=== PATIENT | female | born 2000 | race Caucasian/White ===

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

== ENCOUNTER 2021-01-10 16:02 | Emergency (ER) | payer BC ==
--- OUTSIDE RECORDS SUMMARY | 2021-01-10 16:05 | XMS REPORT | Continuity of Care Document ---
:2000 Author Organization [facility] t Address [address] [place] [address] Care Team Providers Name Role Phone Doctor Unassigned, Name Attending Clinician Unavailable Problems This patient has no known problems. Allergies, Adverse Reactions, Alerts This patient has no known allergies or adverse reactions. Medications This patient has no known medications. Procedures This patient has no known procedures. Encounters Start End Encounter Admission Attending Care Care Encounter Source Date/Time Date/Time Type Type Clinicians Facility Department ID 2020-10-07 2020-10-07 Orders Doctor CLARENCE [id number] 00:00:00 00:00:00 Only Unassigned, EDGARDO [id number] [place] [facility] [id number] Results This patient has no known results.
[2021-01-10 16:45] LABS: Urine Blood 1+ (Negative); Urine Glucose Negative (Negative); Urine Protein 1+ (Negative); Urine Specific Gravity 1.025 (1.005-1.030); Urine pH 5.5 (5.0-7.0)
[2021-01-10] MEDS ORDERED: NA CHLORIDE 0.9% 1,000 ML ONE (16:56)
[2021-01-10] MEDS ORDERED: KETOROLAC 30 MG/ML INJ ONE (16:57)
[2021-01-10] MEDS ORDERED: ONDANSETRON 4 MG/2 ML VIAL ONE (16:57)
[2021-01-10 17:06] LABS: Absolute Lymphocytes (CBC) 1.5 K/uL (0.7-4.9); Basophils % 0.7 % (0-1.3); Hematocrit 39.5 % (36.0-45.0); Lymphocytes % 16.6 % (15.3-44.8); MPV 9.1 fL (7.6-11.3); RBC Red Blood Cell Count 4.96 M/uL (3.86-4.86)
[2021-01-10 17:34] LABS: Albumin 3.6 g/dL (3.4-5.0); Bilirubin Direct 0.1 mg/dL (0-0.2); Bilirubin Total 0.4 mg/dL (0.2-1.0); Potassium 4.2 mmol/L (3.5-5.1); Protein, Total 7.7 g/dL (6.4-8.2)
--- NOTE | 2021-01-10 18:01 | RAD REPORT ---
EXAM DESCRIPTION: CT - Abdomen Pelvis W Contrast - 01/10/2021 5:30 pm CLINICAL HISTORY: Abdominal pain COMPARISON: none. TECHNIQUE: Computed axial tomography of the abdomen pelvis was obtained. 100 cc Isovue-300 was admin istered intravenously. Oral contrast was not requested which limits evaluation of bowel. All CT scans are performed using dose optimization technique as appropriate and may include automated exposure control or mA/KV adjustment according to patient size. FINDINGS: The liver, spleen, pancreas, adrenal and kidneys appear unremarkable. There is no evidence of diverticulitis. Normal appendix No adnexal mass IMPRESSION: No acute abnormality is displayed.
--- NOTE | 2021-01-10 18:03 | RAD REPORT ---
EXAM DESCRIPTION: US - Abdomen Exam Limited - 01/10/2021 5:47 pm CLINICAL HISTORY: Abdominal pain. COMPARISON: None. FINDINGS: The gallbladder wall is not thickened. A gallstone is not seen. The biliary tree is normal caliber. IMPRESSION: Unremarkable gallbladder ultrasound.
--- NOTE | 2021-01-10 18:23 | EDPHYS ---
Physician Documentation [facility] Name: Rocky Taylor Age: 20 yrs Sex: Female : 2000 Arrival Date: 01/10/2021 Time: 16:03 Bed 6 Private MD: Wilson Peterson W ED Physician Asher Brooks HPI: 01/10 17:44 This 20 yrs old Female presents to ER via Ambulatory with complaints of kb Abdominal Pain. 17:44 The patient presents with abdominal pain in the right upper quadrant, right lower kb quadrant. Onset: The symptoms/episode began/occurred 3 day(s) ago. The symptoms do not radiate. Associated signs and symptoms: Pertinent positives: nausea, vomiting, and diarrhea, fever. The symptoms are described as constant. Modifying factors: The symptoms are alleviated by nothing, the symptoms are aggravated by nothing. Severity of pain: At its worst the pain was moderate in the emergency department the pain is unchanged. The patient has not experienced similar symptoms in the past. The patient has not recently seen a physician. Historical: - Allergies: 16:16 No Known Allergies; hb - PMHx: 16:16 Depression; Anemia; Hypothyroidism; Thyroid CA; hb - PSHx: 16:16 Thyroidectomy; hb - Immunization history:: Adult Immunizations up to date. - Social history:: Smoking status: Patient denies any tobacco usage or history of. ROS: 17:43 Cardiovascular: Negative for chest pain, palpitations, and edema, Respiratory: Negative kb for shortness of breath, cough, wheezing, and pleuritic chest pain, MS/Extremity: Negative for injury and deformity, Skin: Negative for injury, rash, and discoloration, Neuro: Negative for headache, weakness, numbness, tingling, and seizure. 17:43 Constitutional: Positive for fever. 17:43 Abdomen/GI: Positive for abdominal pain, nausea, vomiting, and diarrhea. Exam: 17:43 Constitutional: This is a well developed, well nourished patient who is awake, alert, kb and in no acute distress. Head/Face: Normocephalic, atraumatic. Cardiovascular: Regular rate and rhythm with a normal S1 and S2. No gallops, murmurs, or rubs. No pulse deficits. Respiratory: Respirations even and unlabored. No increased work of breathing, no retractions or nasal flaring. Skin: Warm, dry with normal turgor. Normal color. MS/ Extremity: Pulses equal, no cyanosis. Neurovascular intact. Full, normal range of motion. Neuro: Awake and alert, GCS 15, oriented to person, place, time, and situation. Moves all extremities. Normal gait. 17:43 Abdomen/GI: Inspection: abdomen appears normal, Bowel sounds: normal, in all quadrants, Palpation: soft, in all quadrants, moderate abdominal tenderness, in the right upper quadrant and right lower quadrant. Vital Signs: 16:14 BP 137 / 79; Pulse 122; Resp 16; Temp 98.4; Pulse Ox 99% on R/A; Pain 4/10; hb 18:01 BP 120 / 50; Pulse 112; Resp 17; Pulse Ox 99% on R/A; tw2 MDM: 16:22 Patient medically screened. 17:43 Data reviewed: vital signs, nurses notes. Data interpreted: Pulse oximetry: on room air kb is 99 %. Interpretation: normal. 18:23 Counseling: I had a detailed discussion with the patient and/or guardian regarding: the kb historical points, exam findings, and any diagnostic results supporting the discharge/admit diagnosis, lab results, radiology results, the need for outpatient follow up, a family practitioner, to return to the emergency department if symptoms worsen or persist or if there are any questions or concerns that arise at home. 01/10 16:22 Order name: Basic Metabolic Panel 01/10 16:22 Order name: CBC with Diff 01/10 16:22 Order name: Hepatic Function 01/10 16:22 Order name: Lipase 01/10 16:45 Order name: Urine Dipstick-Ancillary; Complete Time: 16:58 EDCT 01/10 17:23 Order name: Urine --Ancillary (enter results) eb 01/10 16:22 Order name: IV Saline Lock; Complete Time: 16:55 kb 01/10 16:39 Order name: US Abdomen Limited kb 01/10 16:39 Order name: CT Abd/Pelvis - IV Contrast Only 01/10 18:02 Order name: CT EDCT 01/10 18:05 Order name: US [facility] 01/10 16:22 Order name: Labs collected and sent; Complete Time: 16:55 kb 01/10 16:22 Order name: Urine Test (obtain specimen); Complete Time: 16:56 kb 01/10 16:22 Order name: Urine Dipstick-Ancillary (obtain specimen); Complete Time: 16:56 kb Administered Medications: 16:48 Drug: Zofran (Ondansetron) 4 mg Route: IVP; Site: left antecubital; tw2 17:14 Follow up: Response: No adverse reaction bp 16:50 Drug: NS 0.9% 1000 ml Route: IV; Rate: 1000 ml; Site: left antecubital; tw2 18:57 Follow up: Response: No adverse reaction; IV Status: Completed infusion; IV Intake: tw2 1000ml 16:50 Drug: TORadol - (ketorolac) 15 mg Route: IVP; Site: left antecubital; tw2 17:14 Follow up: Response: No adverse reaction bp Disposition: 01/11 08:01 Co-signature as Attending Physician, Asher Brooks MD I agree with the assessment and anthony plan of care. Disposition: 01/10/21 18:22 Discharged to Home. Impression: Generalized abdominal pain, Diarrhea, unspecified. - Condition is Stable. - Discharge Instructions: Abdominal Pain, Adult, [id number], Diarrhea, Adult, [id number]-ot-Nihk. - Prescriptions for Bentyl 20 mg Oral Tablet - take 1 tablet by ORAL route every 6 hours As needed; 20 tablet. Zofran 4 mg Oral Tablet - take 1 tablet by ORAL route every 6 hours As needed; 20 tablet. - Medication Reconciliation Form, Thank You Letter, Antibiotic Education, Prescription Opioid Use, Work release form form. - Follow up: Emergency Department; When: As needed; Reason: Worsening of condition. Follow up: Private Physician; When: 2 - 3 days; Reason: Recheck today's complaints, Continuance of care, Re-evaluation by your physician. Signatures: Dispatcher [employer] Marisabel Lu, SAW EDGE FUSER CIRCULAR-C SAW EDGE FUSER CIRCULAR-Asher Peters MD MD cha Baxter, Heather, RN RN Juanita España RN RN tw2 Raza Barbour RN RN bp Corrections: (The following items were deleted from the chart) 01/10 18:57 18:22 01/10/2021 18:22 Discharged to Home. Impression: Generalized abdominal pain; tw2 Diarrhea, unspecified. Condition is Stable. Forms are Medication Reconciliation Form, Thank You Letter, Antibiotic Education, Prescription Opioid Use. Follow up: Emergency Department; When: As needed; Reason: Worsening of condition. Follow up: Private Physician; When: 2 - 3 days; Reason: Recheck today's complaints, Continuance of care, Re-evaluation by your physician. kb
--- NOTE | 2021-01-10 18:23 | ER ---
Nurse's Notes [facility] Name: Rocky Taylor Age: 20 yrs Sex: Female : 2000 Arrival Date: 01/10/2021 Time: 16:03 Bed 6 Private MD: Wislon Peterson W Diagnosis: Generalized abdominal pain;Diarrhea, unspecified Presentation: 01/10 16:14 Chief complaint: Sent by Dr. Peterson for RLQ pain and N/V/D x 3 days. Not hb tolerating fluids. Coronavirus screen: At this time, the client does not indicate any symptoms associated with coronavirus-19. Ebola Screen: No symptoms or risks identified at this time. Initial Sepsis Screen: Does the patient meet any 2 criteria? HR > 90 bpm. No. Patient's initial sepsis screen is negative. Does the patient have a suspected source of infection? No. Patient's initial sepsis screen is negative. Risk Assessment: Do you want to hurt yourself or someone else? Patient reports no desire to harm self or others. Onset of symptoms was January 08, 2021. 16:14 Method Of Arrival: Ambulatory hb 16:14 Acuity: HERVE 3 hb Triage Assessment: 16:15 General: Appears distressed, uncomfortable, Behavior is cooperative, appropriate for bp age, anxious. Pain: Complains of pain in abdomen. EENT: No deficits noted. Neuro: No deficits noted. Cardiovascular: No deficits noted. Respiratory: No deficits noted. GI: Reports lower abdominal pain, upper abdominal pain. : No signs and/or symptoms were reported regarding the genitourinary system. Derm: No deficits noted. Musculoskeletal: No deficits noted. Historical: - Allergies: 16:16 No Known Allergies; hb - PMHx: 16:16 Depression; Anemia; Hypothyroidism; Thyroid CA; hb - PSHx: 16:16 Thyroidectomy; hb - Immunization history:: Adult Immunizations up to date. - Social history:: Smoking status: Patient denies any tobacco usage or history of. Screenin:15 Abuse screen: Denies threats or abuse. Denies injuries from another. Nutritional bp screening: No deficits noted. Tuberculosis screening: No symptoms or risk factors identified. Fall Risk None identified. Assessment: 16:15 General: SEE TRIAGE NOTE. bp 17:38 Reassessment: No changes from previously documented assessment. Patient and/or family bp updated on plan of care and expected duration. Pain level reassessed. PT RETURNED FROM CT. 18:57 Reassessment: Patient appears in no apparent distress at this time. No changes from tw2 previously documented assessment. Patient and/or family updated on plan of care and expected duration. Pain level reassessed. Patient is alert, oriented x 3, equal unlabored respirations, skin warm/dry/pink. Patient states feeling better. Patient states symptoms have improved. Vital Signs: 16:14 BP 137 / 79; Pulse 122; Resp 16; Temp 98.4; Pulse Ox 99% on R/A; Pain 4/10; hb 18:01 BP 120 / 50; Pulse 112; Resp 17; Pulse Ox 99% on R/A; tw2 ED Course: 16:03 Patient arrived in ED. as 16:03 Wilson Peterson MD is Private Physician. as 16:07 Marisabel Cuba FNP-C [facility] kb 16:07 Asher Brooks MD is Attending Physician. kb 16:15 Patient has correct armband on for positive identification. Bed in low position. Call bp light in reach. Side rails up X2. Adult w/ patient. 16:16 Triage completed. hb 16:16 Arm band placed on. hb 16:22 Raza Barbour, RN is Primary Nurse. bp 16:41 Radiology exam delayed due to test not completed at this time. vm2 16:50 Inserted saline lock: 20 gauge in left antecubital area, using aseptic technique. bp 18:56 No provider procedures requiring assistance completed. IV discontinued, intact, tw2 bleeding controlled, No redness/swelling at site. Pressure dressing applied. 22:08 CT In Process Unspecified. EDMS 22:09 US In Process Unspecified. EDMS Administered Medications: 16:48 Drug: Zofran (Ondansetron) 4 mg Route: IVP; Site: left antecubital; tw2 17:14 Follow up: Response: No adverse reaction bp 16:50 Drug: NS 0.9% 1000 ml Route: IV; Rate: 1000 ml; Site: left antecubital; tw2 18:57 Follow up: Response: No adverse reaction; IV Status: Completed infusion; IV Intake: tw2 1000ml 16:50 Drug: TORadol - (ketorolac) 15 mg Route: IVP; Site: left antecubital; tw2 17:14 Follow up: Response: No adverse reaction bp Intake: 18:57 IV: 1000ml; Total: 1000ml. tw2 Outcome: 18:22 Discharge ordered by MD. hansen 18:56 Discharged to home ambulatory, with family. tw2 18:56 Condition: stable 18:56 Discharge instructions given to patient, family, Instructed on discharge instructions, follow up and referral plans. medication usage, Demonstrated understanding of instructions, follow-up care, medications, Prescriptions given X 2. 18:57 Patient left the ED. tw2 Signatures: Dispatcher [employer] EDMS Marisabel Cuba, PHOTOGRAPHY COLORIST-C PHOTOGRAPHY COLORIST-Tania Nguyen Heather, RN RN Juanita España RN RN 2 Mishel Spivey [facility] Raza Barbour, RN RN bp
[2021-01-10 19:04] VITALS: TEMP 98.4; O2SAT 99
[2021-01-10 19:05] VITALS: BP 120/50
[2021-01-10 19:07] LABS: Platelet Estimate ADEQ; White Blood Cell Scan OK (OK)
[2021-01-10 19:08] LABS: Anisocytosis 3+; Blood Morphology Comment NOTED (NOT SEEN)
[2021-01-10 19:25] LABS: Urine Specific Gravity/Preg 1.025 (1.005-1.030)
== END 2021-01-10 18:57 | disposition home or self-care (01) ==
LOC: ER 16:02
DX: R10.84 Generalized abdominal pain (principal); R19.7 Diarrhea, unspecified; F32.9 Major depressive disorder, single episode, unspecified; E03.9 Hypothyroidism, unspecified; Z85.850 Personal history of malignant neoplasm of thyroid
CPT/HCPCS: 96361; 85025; 80048; 36415; 81025; 80076; 81003; 83690; 74177; 76705; 96375; 96374; 99284; Q9967; J7030; J2405

== ENCOUNTER 2023-07-27 23:28 | Emergency (ER) | payer BC ==
--- OUTSIDE RECORDS SUMMARY | 2023-07-27 23:32 | XMS REPORT | Continuity of Care Document ---
:2000 Author Organization [facility] t Address [address] [place] [address] Care Team Providers Name Role Phone JUANITA SUAREZ Primary Care Physician Unavailable [email or web address] Attending Clinician Unavailable Lilly HE, Sebastian Tucker Attending Clinician CHAVEZ ALTAMIRANO Attending Clinician Unavailable ESAU MABRY Attending Clinician Unavailable ROLAND CANNON Attending Clinician Unavailable Doctor Unassigned, [place] Attending Clinician Unavailable [email or web address] Admitting Clinician Unavailable ESAU MABRY Admitting Clinician Unavailable Payers Payer Name Policy Type Policy Number Effective Date Expiration Date S [facility] - [id number] 2013 00:00:00 OUT OF STATE Problems Condition Condition Condition Status Onset Resolution Last Treating Co mments Source Name Details Category Date Date Treatment Clinician Date Obesity Obesity Disease Active Univers (BMI (BMI 5-05 ity of 30-39.9) 30-39.9) 00:00: [address] Gastroente Gastroente Disease Active U nivers ritis ritis 5-04 ity of 00:00: [address] Abnormal Abnormal Disease Active Unive rs uterine uterine 3-12 ity of bleeding bleeding 00:00: [place] (AUB) (AUB) 00 Medical Branch OCP (oral OCP (oral Disease Active Uni vers contracept contracept 3-12 it y of kel pills) kel pills[place] initiation 00 Me dical Branch Anemia, Anemia, Disease Active Univers unspecifie unspecifie 3-12 it y of d d 00:00: [place] [facility] Generalize Generalize Disease Active U nivers d anxiety d anxiety 3-12 ity of disorder disorder 00:00: [place] [facility] S/P total S/P total Disease Active Uni vers thyroidect thyroidect 1-10 it y of carlos carlos 00:00: [place] [facility] Status Status Disease Active Univers post post 02-12 ity of radioactiv radioactiv 00:[place] e iodine e iodine 00 Medica l thyroid thyroid Branch ablation ablation Thyroid Thyroid Disease Active Univers cancer cancer 02-11 ity of 00:00: [place] [facility] 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 ICD10 Diagnosis Term Combination Technician Utility Allergies, Adverse Reactions, Alerts Allergy Allergy Status Severity Reaction(s) Onset Inactive Treating Comm ents Source Name Type Date Date Clinician NO KNOWN Drug Active Univers ALLERGIE Class ity of S [facility] Social History Social Habit Start Date Stop Date Quantity Comments Source Alcohol intake 2021-02-24 2021-02-24 Ex-drinker University of 00:00:00 00:00:00 (finding) [facility] Tobacco use and 2020-10-07 2020-10-07 Never used Universit y of exposure 00:00:00 00:00:00 [facility] Sex Assigned At [birth year] Universit y of 00:00:00 00:00:00 [facility] Smoking Status Start Date Stop Date Source Unknown if ever smoked [facility] Never smoker University [place] [facility] Medications Ordered Filled Start Stop Current Ordering Indication Dosage Frequency Signature Comments Components Source Medication Medication Date Date Medication? Clinician (SIG) Name Name mary Yes Take by Uni vers min, 5-05 mouth. ity of vitamin 13:33: [place] B-12, 32 Medical (VITAMIN Branch B-12 ORAL) ciprofloxac Yes [id number] 500mg Take 1 Univers in HCl 500 5-05 tablet by ity of mg tablet 00:00: mouth [place] 00 every 12 Medical (twelve) Branch hours. norgestimat Yes [id number] 1{tbl} Take 1 Univers e-ethinyl 3-11 tablet by ity o f estradioL 00:00: mouth [place] (FEMYNOR) 00 daily. Medical 0.25-35 Branch mg-mcg per tablet levothyroxi Yes Univer s ne 200 mcg 1-21 ity of tablet 00:00: [place] 00 Medical Branch ergocalcife Yes [id number] Take Univ ers rol, 1-21 50,000 ity of vitamin d2, 00:00: Units by [place] 1,250 mcg 00 mouth Medical (50,000 weekly. Branch unit) capsule liothyronin 2019-09 Yes 25ug Take 25 Uni vers e 25 mcg 1-04 mcg by ity of tablet 00:00: mouth [place] 00 every Medical morning. Branch ALPRAZolam 2019-09 Yes TAKE 1 Unive rs 0.25 mg 1-04 TABLET BY ity of tablet 00:00: MOUTH [place] 00 EVERY DAY Medical NEEDED Branch lamoTRIgine 2019-09 Yes TAKE 1.5 Un thee 100 mg 1-04 TABLETS BY ity of tablet 00:00: MOUTH ONCE [place] 00 A DAY Medical Branch venlafaxine 2019-09 Yes 150mg Take 150 U nivers XR 150 mg 1-04 mg by ity of 24 hr 00:00: mouth [place] capsule 00 daily. Medical Branch Vital Signs Vital Name Observation Time Observation Value Comments Source Body height 2021-02-24 19:54:00 152.4 cm [facility] Body weight 2021-02-24 19:54:00 84.823 kg [facility] BMI 2021-02-24 19:54:00 36.52 kg/m2 [facility] Body mass index 2021-02-24 19:54:00 97.74 % [facility] [Percentile] Per age and sex Procedures Procedure Date / Time Performed Performing Clinician Sour e ASSIGNMENT OF BENEFITS 2020-10-07 19:39:36 Doctor Unassigned, No [facility] Name [facility] Branch Encounters Start End Encounter Admission Attending Care Care Encounter Source Date/Time Date/Time Type Type Clinicians Facility Department ID 2021-07-13 Emergency [facility] [id number] Univers 17:00:29 [facility] 2023-07-11 2023-07-11 Outpatient [email or web address] PRIV PRIV [id number] [facility] 00:00:00 00:00:00 diyala_S [id number] Medic al 2021-02-24 2021-02-24 [facility] [id number] Univers 15:00:00 15:15:00 Visit [facility] [id number] it y of Surgical [id number] Derick as Specialti [phone] Tn dical es 198 [facility] 2021-02-24 2021-02-24 Outpatient R CHAVEZ ALTAMIRANO [facility] [id number] Univers [facility]:00[facility] 2021-02-24 Outpatient R CHAVEZ ALTAMIRANO [facility] [id number] Univers 11:00:00 11:00:00 [id number] [facility] 2021-02-24 2021-02-24 Outpatient R CHAVEZ ALTAMIRANO [facility] [id number] Univers 11:00:[facility] 2021-01-14 2021-01-15 Outpatient X RAGHAVENDRA [facility] [id number] Univers 16:24:00 13:33:00 ESAU [facility] 2021-01-09 2021-01-09 Outpatient R KASSANDRA [facility] [id number] Univers 14:40:00 14:40:00 ROLAND ity [facility] 2020-11-21 2020-11-21 Outpatient CHAVEZ ALTAMIRANO [facility] [id number] Univers 11:00:00 11:00:00 [id number] ity [facility] 2020-11-21 2020-11-21 Outpatient R CHAVEZ ALTAMIRANO [facility] [id number] Univers 11:00:00 11:00:00 ity [facility] 2020-10-21 2020-10-21 Outpatient R FISHCHAVEZ [facility] [id number] Univers 13:45:00 13:45:00 [id number] ity [facility] 2020-10-21 2020-10-21 Outpatient R CHAVEZ ALTAMIRANO [facility] [id number] Univers 13:45:00 13:45:00 ity [facility] 2020-10-07 2020-10-07 Outpatient R CHAVEZ ALTAMIRANO [facility] [id number] Univers 13:30:00 13:30:00 ity [facility] 2020-10-07 2020-10-07 Orders Doctor CLARENCE [id number] 00:00:00 00:00:00 Only Unassigned, EDGARDO [id number] [place] [facility] [id number] 2020-10-07 2020-10-07 Orders Doctor CLARENCE [id number] Univers 00:00:00 00:00:00 Only Unassigned, EDGARDO [id number] ity of [place] [facility] [id number] Derick as [phone] [facility] 009 Branch Results This patient has no known results.
[2023-07-28 01:13] LABS: Specific Gravity 1.008 (1.005-1.030)
[2023-07-28 01:17] LABS: Absolute Lymphocytes (CBC) 3.9 K/uL (0.7-4.9); Hematocrit 42.5 % (36.0-45.0); Lymphocytes % 32.1 % (15.3-44.8); MCV 87.7 fL (80-100); MPV 8.4 fL (7.6-11.3); Platelets 289 thou/uL (152-406); RBC Red Blood Cell Count 4.85 M/uL (3.86-4.86)
[2023-07-28 01:22] LABS: Barbiturates NEGATIVE (NEGATIVE); Benzodiazepines NEGATIVE (NEGATIVE); Cocaine NEGATIVE (NEGATIVE); METHAMPHETAM NEGATIVE (NEGATIVE); Methadone NEGATIVE (NEGATIVE); Opiates NEGATIVE (NEGATIVE); Phencyclidine NEGATIVE (NEGATIVE); Specific Gravity 1.008 (1.005-1.030); THC Cannibis NEGATIVE (NEGATIVE); Urine Bacteria None Seen /HPF (<20); Urine Bilirubin NEGATIVE (Negative); Urine Blood Negative (Negative); Urine Clarity Turbid (Clear); Urine Color Colorless (Yellow); Urine Glucose NEGATIVE (Negative); Urine Mucus Slight /HPF (None Seen); Urine Protein NEGATIVE (Negative); Urine RBC None Seen /HPF (None Seen); Urine Urobilinogen Normal (Normal)
[2023-07-28 01:30] LABS: BUN Blood Urea Nitrogen 11 mg/dL (7-18); Bicarbonate 27 mEq/L (21-32); Glomerular Filtration Rate 81 ml/min (=/>90); Glucose Level 110 mg/dL (74-106); Magnesium 2.4 mg/dL (1.6-2.4); Potassium 3.7 mEq/L (3.5-5.1); Sodium Level 138 mEq/L (136-145); Troponin High Sensitivity < 3.0 pg/mL (<58.9)
--- NOTE | 2023-07-28 02:42 | EDPHYS ---
Physician Documentation [facility] Name: Rocky Taylor Age: 22 yrs Sex: Female : 2000 Arrival Date: 07/27/2023 Time: 23:28 Bed 7 Private MD: ED Physician Saurabh Rivera HPI: 07/27 23:30 This 22 yrs old Female presents to ER via Ambulatory with complaints of Near Syncope. cp 23:30 The patient has experienced near-syncope, almost passed out. Onset: The cp symptoms/episode began/occurred today, about 4 episodes while sitting down. Associated injury: The patient did not suffer any apparent associated injury. Associated signs and symptoms: Pertinent positives: chest tightness, right leg tightness and discomfort, Pertinent negatives: abdominal pain, cough, fever. 23:30 Current symptoms: chest tightness, right leg "discomfort". 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 Flu vaccine is not up to date. - Social history:: Smoking status: Patient denies any tobacco usage or history of. Patient uses alcohol, but reports only rare drinking. Patient/guardian denies using street drugs, IV drugs. ROS: 07/27 23:35 Constitutional: Negative for body aches, chills, fever, poor PO intake, cp 23:35 Eyes: Negative for injury, pain, redness, and discharge, cp 23:35 ENT: Negative for drainage from ear(s), ear pain, sore throat, difficulty swallowing, difficulty handling secretions, 23:35 Cardiovascular: Positive for chest tightness, Negative for edema, palpitations, 23:35 Respiratory: Negative for cough, shortness of breath, wheezing, 23:35 Abdomen/GI: Negative for abdominal pain, vomiting, diarrhea, constipation, 23:35 MS/extremity: Positive for of the right leg, discomfort, Negative for injury or acute deformity, decreased range of motion, 23:35 Neuro: Positive for near syncope, Negative for altered mental status, headache, weakness, 23:35 All other systems are negative, Exam: 23:40 Constitutional: The patient appears in no acute distress, alert, awake, cp non-diaphoretic, non-toxic, well developed, well nourished, 23:40 Head/Face: Normocephalic, atraumatic. cp 23:40 Eyes: Periorbital structures: appear normal, Pupils: equal, round, and reactive to light and accomodation, Extraocular movements: intact throughout, Conjunctiva: normal, no exudate, no injection, Sclera: no appreciated abnormality, Lids and lashes: appear normal, bilaterally, 23:40 ENT: External ear(s): are unremarkable, Nose: is normal, Mouth: Lips: moist, Oral mucosa: pink and intact, moist, Posterior pharynx: Airway: no evidence of obstruction, patent, 23:40 Neck: ROM/movement: is normal, is supple, without pain, no range of motions limitations, 23:40 Chest/axilla: Inspection: normal, 23:40 Cardiovascular: Rate: normal, Rhythm: regular, Heart sounds: murmur, not appreciated, Edema: is not appreciated, JVD: is not appreciated, 23:40 Respiratory: the patient does not display signs of respiratory distress, Respirations: normal, no use of accessory muscles, no retractions, labored breathing, is not present, Breath sounds: are clear throughout, no decreased breath sounds, no stridor, no wheezing, 23:40 Abdomen/GI: Inspection: abdomen appears normal, Palpation: abdomen is soft and non-tender, in all quadrants, 23:40 Back: pain, is absent, ROM is normal, 23:40 Musculoskeletal/extremity: Extremities: noted in the right leg: tenderness, ROM: intact in all extremities, 23:40 Skin: cellulitis, is not appreciated, no rash present. 23:40 Neuro: Orientation: to person, place \\T\\ time. Mentation: is normal, Cerebellar function: is grossly normal, Motor: moves all fours, strength is normal, Sensation: no obvious gross deficits, 07/28 00:43 ECG was reviewed by the Attending Physician. cp Vital Signs: 07/27 23:56 BP 126 / 91; Pulse 78; Resp 17 S; Temp 98.6(O); Pulse Ox 100% on R/A; Weight 63.5 kg; jw7 Height 5 ft. 0 in. ; Pain 12/21; 07/28 00:45 BP 114 / 76; Pulse 60; Resp 13 S; Pulse Ox 99% on R/A; jw7 01:49 BP 109 / 64; Pulse 62; Resp 19 S; Pulse Ox 98% on R/A; jw7 02:30 BP 112 / 67; Pulse 57; Resp 18 S; Pulse Ox 97% on R/A; jw7 07/27 23:56 Body Mass Index 27.34 (63.50 kg, 152.4 cm) [facility] 07/27 23:56 Pain Scale: Adult [facility] MDM: 07/27 23:43 Patient medically screened. 07/28 01:00 Differential Diagnosis: cardiac arrhythmia, drug effect, GI bleed, idiopathic syncope, cp , seizure. 02:40 Data reviewed: vital signs, nurses notes, lab test result(s), EKG, radiologic studies, cp CT scan, plain films, ultrasound. 02:40 I considered the following discharge prescriptions or medication management in the emergency department Medications were administered in the Emergency Department. See MAR. Independent interpretation of the following test(s) in the Emergency Department EKG: See my EKG interpretation above. Counseling: I had a detailed discussion with the patient and/or guardian regarding the historical points, exam findings, and any diagnostic results supporting the discharge/admit diagnosis, lab results, radiology results, the need for outpatient follow up, a pick up, a family practitioner, to return to the emergency department if symptoms worsen or persist or if there are any questions or concerns that arise at home. Response to treatment: the patient's symptoms have markedly improved after treatment, and as a result, I will discharge patient. 07/27 23:55 Order name: Basic Metabolic Panel; Complete Time: 02:08 07/28 02:08 Interpretation: Normal except: GLUC 110; GFR 81. 07/27 23:55 Order name: CBC with Diff; Complete Time: 01:24 07/28 01:24 Interpretation: Normal except: WBC 12.30. 07/27 23:55 Order name: D-Dimer; Complete Time: 02:08 07/28 02:08 Interpretation: Reviewed. 07/27 23:55 Order name: Magnesium; Complete Time: 02:08 07/28 02:08 Interpretation: Reviewed. 07/27 23:55 Order name: Troponin HS; Complete Time: 02:08 cp 07/28 02:08 Interpretation: Reviewed. 07/27 23:55 Order name: Urinalysis W/Microscopic; Complete Time: 01:24 07/28 01:24 Interpretation: Normal except: [facility] Turbid; UESTR 25. 07/27 23:55 Order name: PREGU; Complete Time: 01:24 07/27 23:55 Order name: UDS; Complete Time: 01:24 07/27 23:55 Order name: XRAY Chest (1 view) 07/27 23:55 Order name: US Extremity Venous Unilateral Ltd 07/28 00:51 Order name: CT Head Brain wo Cont 07/27 23:55 Order name: EKG; Complete Time: 23:56 07/27 23:55 Order name: Cardiac monitoring; Complete Time: 00:51 07/27 23:55 Order name: EKG - Nurse/Tech; Complete Time: 00:52 07/27 23:55 Order name: IV Saline Lock; Complete Time: 00:52 07/27 23:55 Order name: Labs collected and sent; Complete Time: 00:52 07/27 23:55 Order name: O2 Per Protocol; Complete Time: 00:52 07/27 23:55 Order name: O2 Sat Monitoring; Complete Time: 00:52 cp EC:43 Rate is 57 beats/min. Rhythm is regular. NM interval is normal. QRS interval is normal. cp QT interval is normal. T waves are Inverted in lead aVR. Interpreted by me. Reviewed by me. Administered Medications: No medications were administered Disposition: 02:01 Co-signature as Attending Physician, Saurabh Rivera MD I agree with the assessment sp4 and plan of care. I reviewed the patient's care provided by the Advanced Practice Provider and agree with the diagnosis and treatment plan. Disposition Summary: 07/28/23 02:41 Discharge Ordered Notes: Location: Home cp Problem: new cp Symptoms: have improved cp Condition: Stable cp Diagnosis - Syncope Near cp Followup: cp - With: Donn Brown MD - When: 2 - 3 days - Reason: Recheck today's complaints Discharge Instructions: - Discharge Summary Sheet cp - Near-Syncope cp - Syncope cp - Ambulatory Cardiac Monitoring cp Forms: - Medication Reconciliation Form cp - Thank You Letter cp - Antibiotic Education cp - Prescription Opioid Use cp - Patient Portal Instructions cp - Leadership Thank You Letter cp Signatures: Dispatcher [employer] EDAsher Ty PA PA cp Waits, Jodi, RN RN jw7 Saurabh Rivera MD MD sp4
--- NOTE | 2023-07-28 02:42 | ER ---
Nurse's Notes [facility] Name: Rocky Taylor Age: 22 yrs Sex: Female : 2000 Arrival Date: 07/27/2023 Time: 23:28 Bed 7 Private MD: Diagnosis: Syncope Near Presentation: 07/27 23:56 Chief complaint: Patient states: "I had an episode where I felt like I was fighting to [facility] not pass out, this happened around 1600 today while I was going to the restroom and I lost all sensation to my lower body and felt faint", also states "My right leg feels tight, like a arlen horse" and complains of chest tightness. Coronavirus screen: At this time, the client does not indicate any symptoms associated with coronavirus-19. Ebola Screen: No symptoms or risks identified at this time. Initial Sepsis Screen: Does the patient meet any 2 criteria? No. Patient's initial sepsis screen is negative. Does the patient have a suspected source of infection? No. Patient's initial sepsis screen is negative. Risk Assessment: Do you want to hurt yourself or someone else? Patient reports no desire to harm self or others. Onset of symptoms was July 27, 2023. 23:56 Acuity: HERVE 3 jw7 23:56 Method Of Arrival: Ambulatory [facility] Triage Assessment: 07/28 00:01 General: Appears in no apparent distress. comfortable, Behavior is calm, cooperative, jw7 appropriate for age. Pain: Complains of pain in right quadriceps Pain does not radiate. Pain currently is 4 out of 10 on a pain scale. Quality of pain is described as crampy, pressure, squeezing, tingling, Pain began 3 hours ago. Is continuous, Alleviated by nothing. EENT: No deficits noted. No signs and/or symptoms were reported regarding the EENT system. Neuro: Bravo Agitation-Sedation Scale (RASS): 0 - Alert and Calm Level of Consciousness is awake, alert, obeys commands, Oriented to person, place, time, situation. Cardiovascular: Reports chest tightness Capillary refill < 3 seconds Clubbing of nail beds is absent JVD is absent Patient's skin is warm and dry. Respiratory: Airway is patent Trachea midline Respiratory effort is even, unlabored, Respiratory pattern is regular, symmetrical. GI: No deficits noted. No signs and/or symptoms were reported involving the gastrointestinal system. : No deficits noted. No signs and/or symptoms were reported regarding the genitourinary system. Derm: No deficits noted. No signs and/or symptoms reported regarding the dermatologic system. Musculoskeletal: Circulation, motion, and sensation intact. Range of motion: intact in all extremities, Reports tingling in muscles, with right leg tightness "that feels like a arlen horse". SOLO MUSICIAN: 00:01 LMP 07/14/2023, unknown jw Historical: - Allergies: 00:01 No Known Allergies; jw7 - Home Meds: 00:01 levothyroxine oral [Active]; T3 [Active]; Methylphenidate Oral [Active]; jw7 - PMHx: 00:01 Anemia; Depression; Hypothyroidism; thyroid CA; Anxiety; jw7 - PSHx: 00:01 Thyroidectomy; Breast Reduction; Decompression of Chiari Malformation; jw7 - Immunization history:: Adult Immunizations not up to date, Client reports having NOT received the Covid vaccine. Flu vaccine is not up to date. - Social history:: Smoking status: Patient denies any tobacco usage or history of. Patient uses alcohol, but reports only rare drinking. Patient/guardian denies using street drugs, IV drugs. Screenin/14 23:55 [facility] ED Fall Risk Assessment (Adult) History of falling in the last 3 months, jw7 including since admission No falls in past 3 months (0 pts) Score/Fall Risk Level 0 - 2 = Low Risk Oriented to surroundings, Maintained a safe environment. Abuse screen: Denies threats or abuse. Denies injuries from another. Nutritional screening: No deficits noted. Tuberculosis screening: No symptoms or risk factors identified. Assessment: 07/28 00:10 General: see triage assessment. jw7 01:30 Reassessment: Patient appears in no apparent distress at this time. No changes from jw7 previously documented assessment. Patient and/or family updated on plan of care and expected duration. Pain level reassessed. Patient is alert, oriented x 3, equal unlabored respirations, skin warm/dry/pink. 02:30 Reassessment: Patient appears in no apparent distress at this time. Patient and/or jw7 family updated on plan of care and expected duration. Pain level reassessed. Patient is alert, oriented x 3, equal unlabored respirations, skin warm/dry/pink. Patient states feeling better. Patient states symptoms have improved. Vital Signs: 07/27 23:56 BP 126 / 91; Pulse 78; Resp 17 S; Temp 98.6(O); Pulse Ox 100% on R/A; Weight 63.5 kg; jw7 Height 5 ft. 0 in. ; Pain 4/10; 07/28 00:45 BP 114 / 76; Pulse 60; Resp 13 S; Pulse Ox 99% on R/A; jw7 01:49 BP 109 / 64; Pulse 62; Resp 19 S; Pulse Ox 98% on R/A; jw7 02:30 BP 112 / 67; Pulse 57; Resp 18 S; Pulse Ox 97% on R/A; jw7 07/27 23:56 Body Mass Index 27.34 (63.50 kg, 152.4 cm) jw7 07/27 23:56 Pain Scale: Adult jw7 ED Course: 07/27 23:31 Patient arrived in ED. jj6 23:33 Asher Arcos PA is PHCP. cp 23:33 Saurabh Rivera MD is Attending Physician. cp 23:55 Agustina Torres, BRIEN is Primary Nurse. jw7 23:55 Patient has correct armband on for positive identification. Placed in gown. Bed in low jw7 position. Call light in reach. 07/28 00:01 Triage completed. jw7 00:01 Arm band placed on. jw7 00:07 XRAY Chest (1 view) In Process Unspecified. EDMS 00:27 US Extremity Venous Unilateral Ltd In Process Unspecified. EDMS 00:51 Initial lab(s) drawn, by ne, sent to lab. Urine collected: clean catch specimen, clear, jw7 EKG done, by ED staff, reviewed by Asher CHRISTY. Inserted saline lock: 20 gauge in left antecubital area, using aseptic technique. Blood collected. 00:52 UDS Sent. jw7 00:52 PREGU Sent. jw7 00:52 Urinalysis W/Microscopic Sent. jw7 00:52 Basic Metabolic Panel Sent. jw7 00:52 CBC with Diff Sent. jw7 00:52 D-Dimer Sent. jw7 00:52 Magnesium Sent. jw7 00:53 Troponin HS Sent. jw7 01:14 CT Head Brain wo Cont In Process Unspecified. EDMS 02:41 Donn Brown MD is Referral Physician. cp 03:04 Provided Education on: discharge instructions. jw7 03:04 No provider procedures requiring assistance completed. IV discontinued, intact, jw7 bleeding controlled, No redness/swelling at site. Pressure dressing applied. Administered Medications: No medications were administered Medication: 03:05 VIS not applicable for this client. jw7 Outcome: 02:41 Discharge ordered by MD. cp 03:04 Discharged to home ambulatory, with family, jw7 03:04 Condition: stable 03:04 Discharge instructions given to patient, Instructed on discharge instructions, follow up and referral plans. Demonstrated understanding of instructions, follow-up care, 03:05 Patient left the ED. jw7 Signatures: Dispatcher [employer] EDNY Asher Arcos PA PA cp Jeffries, Jennifer jj6 Waits, Jodi RN RN jw7 Corrections: (The following items were deleted from the chart) 01:49 00:00 General: see triage assessment. jw7 jw7
[2023-07-28 03:27] VITALS: TEMP 98.6
[2023-07-28 03:32] VITALS: BP 112/67; O2SAT 97
--- NOTE | 2023-07-28 13:52 | RAD REPORT ---
EXAM DESCRIPTION: US - Extremity Venous Uni Ltd - 07/28/2023 12:25 am CLINICAL HISTORY: 22 years Female; discomfort TECHNIQUE: Spectral analysis and color/grayscale sonographic images of the right leg were obtained u tilizing a high-frequency linear array transducer supplemented with color Doppler, compression and au gmentation techniques. COMPARISON: None. FINDINGS: Common femoral: normal Greater saphenous: normal Superficial femoral: normal Popliteal: normal Calf Veins: normal IMPRESSION: No sonographic evidence for right lower extremity deep venous thrombosis. Electronically signed by: Bimal Green MD 07/28/2023 12:36 AM CLEANING MATRON Due to temporary technical issues with the PACS/Fluency reporting system, reports are being signed by the in house radiologist without review as a courtesy to ensure prompt reporting. The interpreting r adiologist is fully responsible for the content of the report.
--- NOTE | 2023-07-28 14:08 | RAD REPORT ---
EXAM DESCRIPTION: CT - Head Brain Wo Cont - 07/28/2023 5:00 am CLINICAL HISTORY: Female, 22 years old, SYNCOPE COMPARISON: 06/10/2021 TECHNIQUE: CT acquisition of the head without contrast. Coronal and sagittal reformatted images prov ided. This exam was performed according to departmental dose-optimization program which includes auto mated exposure control, adjustment of the mA and/or kV according to patient size, and/or use of itera tive reconstruction technique. FINDINGS: No intracranial hemorrhage or extraaxial fluid collection. No mass effect or midline shift. Ventricles, cisterns, and sulci are normal in size and configuration. Brain parenchymal attenuation and farooq-white matter differentiation are within normal limits. Redemonstration of bilateral cerebellar tonsillar descent. No acute osseous finding. Evidence of a prior suboccipital craniectomy. Overlying soft tissues are normal. The visualized paranasal sinuses and mastoid cells are clear. Orbits are unremarkable. IMPRESSION: No acute intracranial findings. Electronically signed by: Malcolm Fischer MD 07/28/2023 01:26 AM SUPERVISOR [employer] Due to temporary technical issues with the PACS/Fluency reporting system, reports are being signed by the in house radiologist without review as a courtesy to ensure prompt reporting. The interpreting r adiologist is fully responsible for the content of the report.
--- NOTE | 2023-07-28 14:15 | RAD REPORT ---
EXAM DESCRIPTION: RAD - Chest Single View - 07/28/2023 12:05 am CLINICAL HISTORY: Chest tightness COMPARISON: None TECHNIQUE: Single AP view of the chest. FINDINGS: Lung volumes adequate. Cardiac silhouette is normal in size. No pneumothorax. No large pleural effusion. No focal consolidation. No acute bony finding. IMPRESSION: No evidence of acute cardiopulmonary disease. Electronically signed by: Bimal Green MD 07/28/2023 12:14 AM FUNERAL ARRANGER Due to temporary technical issues with the PACS/Fluency reporting system, reports are being signed by the in house radiologist without review as a courtesy to ensure prompt reporting. The interpreting r adiologist is fully responsible for the content of the report.
--- NOTE | 2023-07-28 17:21 | EKG ---
Test Date: 2023-07-28 Test Time: 00:37:27 [employer]: ANDERSON MEASUREMENT RESULTS: Intervals: Rate: 57 IA: 152 QRSD: 78 QT: 430 QTc: 418 [place]: P: 23 IA: 152 QRS: 88 T: 52 INTERPRETIVE STATEMENTS: Sinus bradycardia Otherwise normal ECG Compared to ECG 11/17/2019 11:57:03 Sinus rhythm no longer present Electronically Signed On 07-28-23 17:19:52 ATHLETIC SCOUT by Donn Brown
== END 2023-07-28 03:05 | disposition home or self-care (01) ==
LOC: ER 23:28
DX: R55 Syncope and collapse (principal)
CPT/HCPCS: 36415; 70450; 71045; 80048; 80307; 81001; 81025; 83735; 84484; 85025; 85379; 93005; 93971; 99284